=== PATIENT | male | born 1965 | race Two or more races ===

== ENCOUNTER 2021-08-21 02:40 | Emergency (ER) | payer OTHER ==
[~2021-08-21] VITALS: Ht 180.3 cm; Wt 95.3 kg
[2021-08-21] MEDS ORDERED: TENORMIN25 MG (02:47)
[2021-08-21] MEDS ORDERED: COZAAR25 MG PO (02:47)
== END 2021-08-21 09:40 | disposition home or self-care (01) ==
LOC: ER 02:40
DX: R06.02 Shortness of breath (principal); J45.909 Unspecified asthma, uncomplicated; Z03.818 Encounter for observation for suspected exposure to other biological agents ruled out